=== PATIENT | male | born 1960 | race Caucasian/White ===

== ENCOUNTER → 2020-02-06 15:03 | Outpatient (BNVA) | payer OTHER, SELFPAY | PROVIDERS: PCP Internal Medicine; Visit Provider Family Medicine Adult Medicine | DX: M48.00 Spinal stenosis, site unspecified (principal); M54.16 Radiculopathy, lumbar region | CPT/HCPCS: 99212 ==

== ENCOUNTER → 2020-02-27 15:28 | Outpatient (BNVA) | payer OTHER, SELFPAY | PROVIDERS: PCP Internal Medicine; Visit Provider Family Medicine Adult Medicine | DX: M54.16 Radiculopathy, lumbar region (principal); M48.00 Spinal stenosis, site unspecified; Z79.891 Long term (current) use of opiate analgesic | CPT/HCPCS: 99212; Q3014 ==

== ENCOUNTER → 2020-03-26 15:50 | Outpatient (BNVA) | payer OTHER, SELFPAY | PROVIDERS: PCP Internal Medicine; Visit Provider Family Medicine Adult Medicine | DX: M54.16 Radiculopathy, lumbar region (principal); M48.00 Spinal stenosis, site unspecified | CPT/HCPCS: Q3014 ==

== ENCOUNTER 2020-05-06 11:55 | Emergency (ER) | payer OTHER, SELFPAY ==
[2020-05-06 13:32] VITALS: BP 120/84; PULSE 94; RESP 16; TEMP 36.6; O2SAT 99; BMI 30.1
--- NOTE | 2020-05-06 14:19 | ED_ITS ---
HPI - Back Pain/Injury General Chief Complaint: Back Pain/Injury Stated Complaint: BACK PAIN Time Seen by Provider: 05/06/20 13:50 Source: patient Mode of arrival: ambulatory Limitations: no limitations History of Present Illness HPI Narrative: 59-year-old male with a history of chronic back pain/lumbar radiculopathy who is prescribed 15 mg of oxycodone by his primary care provider presenting to the ED with complaints of worsening back pain today. Reports that he ran out of his prescription that he filled on 04/02/2020 where he was given oxycodone 15 mg tablets a quantity of 120 for 30 days. He reports he followed up with pain management on 04/08/2020 and they were supposed to give him a prescription when he followed back up this month although due to his niece having COVID he was unable to follow-up this month and he reports that they told him he cannot return for another 3 months and then they will restart his prescription. Patient requesting a short script of oxycodone. Denies any other symptoms complaints or concerns at this time. Related Data Home Medications Medication Instructions Recorded Confirmed duloxetine 60 mg capsule,delayed 60 mg PO DAILY 02/06/20 04/11/20 release topiramate 25 mg tablet 25 mg PO BID 02/06/20 04/11/20 Previous Rx's Medication Instructions Recorded aspirin 81 mg tablet,delayed 81 mg PO DAILY #30 tab 03/20/20 release gabapentin 800 mg tablet 800 mg PO TID 30 Days #90 tab 04/03/20 tizanidine 4 mg tablet 4 mg PO Q8H PRN #90 tab 04/23/20 simvastatin 40 mg tablet 40 mg PO BEDTIME #90 tab 04/24/20 albuterol sulfate 90 mcg/actuation 2 puff INHALATION Q6H PRN 30 Days 04/30/20 aerosol inhaler #8.5 g cyclobenzaprine 10 mg PO TID PRN #10 tab 05/06/20 ibuprofen 800 mg PO Q8H PRN #14 tab 05/06/20 oxycodone 5 mg PO BID PRN #10 tab 05/06/20 Allergies Allergy/AdvReac Type Severity Reaction Status Date / Time Penicillins [PENICILLINS] Allergy Unknown Foaming at Verified 04/11/20 11:58 the mouth Review of Systems Review of Systems: Constitutional : No trauma, No Weight loss, No Fever, No Chills, ENT/Mouth : No Hearing loss, No Ear Pain, No Nasal Congestion, No Sinus Pain, No Hoarseness, No sore throat, No Rhinorrhea, No Swallowing Difficulty Cardiovascular : No Chest Pain, No SOB Respiratory : No Cough, No Dyspnea Gastrointestinal : No Nausea, No Vomiting, No Diarrhea, No abdominal Pain, No Hematochezia, No Melena Genitourinary : No Dysuria, No Urinary Frequency, No Hematuria, No Urinary or Bowel Incontinence/retention Musculoskeletal : + Back pain, No neck pain, No joint stiffness, No joint swelli ng Skin : No Skin Lesions, No rash or signs of infection Neuro : No Weakness, No radiation, No Numbness, No Paresthesias, No headache, no loss of bowel or bladder incontinence, no saddle anesthesia Denies history of IV drug usage. Yes all other systems are reviewed and are negative [facility] Past Medical History Attestation statement: The following information was validated with the patient. Medical History Asthma Benign essential hypertension Hyperlipidemia Lumbar degenerative disc disease Lumbar radiculopathy Obesity (BMI 30-39.9) Pure hypercholesterolemia Smoker Spinal stenosis Vitamin D deficiency Surgical History Deficient knowledge of leg surgery History of extraction of renal calculus S/P insertion of spinal cord stimulator Family History Family History Father Skin cancer Diabetes Stroke Mother Hypertension CVD (cardiovascular disease) Pacemaker Chronic kidney failure Brother History of coronary artery stent placement Social History Social History Smoking Status: Current every day smoker Tobacco Type: Cigarette Cigarettes Per Day: 10 Advance Directives: No Advance Directives Information Provided: No Physical Exam Vital Signs: Vital Signs: Last Vital Signs Temp 98 F 05/06/20 13:32 Pulse 94 05/06/20 13:32 Resp 16 05/06/20 13:32 BP 120/84 05/06/20 13:32 Pulse Ox 99 05/06/20 13:32 Body Mass Index 30.1 vital signs have been reviewed as normal and appeared to be correct. Blood pressure normal. Heart rate normal. Respiration rate normal. Temperature normal. Oxygen saturation normal. Appearance: Alert. Oriented X3. No acute di stress. Head: Normal external exam. Normocephalic. Atraumatic. No Lema signs noted. No raccoon eyes noted Eyes: PERRLA. EOMI. Conjunctiva and sclera normal. Eyelids normal. ENT: EAC normal. TM's Normal. Pharynx normal. Uvula midline. Moist mucous membranes. No trismus noted. No drooling noted. No muffled voice noted. Neck: Normal inspection. Neck supple. FROM. No adenopathy. Thyroid Normal. No meningeal signs. No neck mass noted. CVS: Normal heart rate and rhythm. Heart sound normal. No murmurs noted. Pulses normal throughout. Respiratory: No respiratory distress. Painless inspiration. Breath sounds normal. No wheezes/rales/rhonchi noted. Chest nontender. No accessory muscle usage noted or decreased air movement noted. Abdomen: Soft and nontender. Bowel sounds normal in all 4 quadrants. No distention noted. No organomegaly noted. No visible injury noted. Back: No CVA tenderness. Full range of motion noted. No obvious deformities, or edema. Mild para-spinal muscular tenderness from lumbar region to coccyx. Full ROM in back and lower extremities. 5/5 strength hip extension/flexion, abduction, adduction. Mild Lumbar pain with hip flexion against resistance. Straight leg raise test negative on right; Straight leg raise test negative on left; Reflexes normal ankle and knee bilaterally; EHL motor strength normal bilaterally Skin: Skin warm and dry. Normal skin color. Normal skin turgor. No rashes/lesions/lacerations noted. Extremities: No lower extremity edema. Extremities exhibit normal range of motion. Extremities nontender. Neuro: Oriented X 3. No motor deficit. No sensory deficit. Reflexes normal. Course Course Course Narrative: Pt c likely muscular pain, but could be herniated disc. Neuro exam shows no deficits. Not c/w AAA/epidural abscess/dissection.No high risk Hx (Incont, fever, immunosupp, recent surgery/LP, coag, signif trauma, wt loss, puls mass, hx/o Ca, TB, or IVDU) to warrant MRI/CT today. Not c/w Pyelo/UTI/kidney stone/spinal fx. Not cauda equina syndrome. I instructed patient that I can give him a short script of 5 mg oxycodone although that he needs to go to his primary care provider today or request a sooner appointment from pain management. Patient understands agrees the plan. MDM - Back Pain/Injury Medical Records Attestation: I reviewed the patient's medical records. Discharge Plan Discharge Clinical Impression: Lumbar radiculopathy Patient Disposition: Home, Self-Care Instructions: Lumbar Radiculopathy (ED), Lower Back Exercises (ED) Prescriptions: New cyclobenzaprine 10 mg tablet 10 mg PO TID PRN (Reason: muscle spasm) Qty: 10 RF: 0 ibuprofen 800 mg tablet 800 mg PO Q8H PRN (Reason: pain) Qty: 14 RF: 0 oxycodone 5 mg tablet 5 mg PO BID PRN (Reason: pain) Qty: 10 RF: 0 No Action aspirin 81 mg tablet,delayed release (DR/EC) 81 mg PO DAILY Qty: 30 RF: 3 gabapentin 800 mg tablet 800 mg PO TID 30 Days Qty: 90 RF: 5 tizanidine 4 mg tablet 4 mg PO Q8H PRN (Reason: for muscle spasm) Qty: 90 RF: 0 simvastatin 40 mg tablet 40 mg PO BEDTIME Qty: 90 RF: 0 albuterol sulfate [ProAir HFA] 90 mcg/actuation HFA aerosol inhaler 2 puff inhalation Q6H PRN (Reason: shortness of breath or wheezing) 30 Days Qty: 8.5 RF: 3 topiramate 25 mg tablet 25 mg PO BID RF: 0 duloxetine 60 mg capsule,delayed release(DR/EC) 60 mg PO DAILY RF: 0 Referrals: Shashi Ruano MD [Primary Care Provider] - 1 day (Call your PCP today) Print Language: Telugu
== END 2020-05-06 14:35 | disposition home or self-care (01) ==
PROVIDERS: Emergency Provider Internal Medicine; PCP Internal Medicine
DX: M54.16 Radiculopathy, lumbar region (principal); F17.210 Nicotine dependence, cigarettes, uncomplicated
CPT/HCPCS: 99283

== ENCOUNTER → 2020-08-13 10:55 | Outpatient (BNVA) | payer OTHER, SELFPAY | PROVIDERS: PCP Internal Medicine; Visit Provider Family Medicine Adult Medicine | DX: M51.36 Other intervertebral disc degeneration, lumbar region (principal) | CPT/HCPCS: 99212 ==

== ENCOUNTER 2022-02-05 08:17 | Emergency (ER) | payer OTHER, SELFPAY ==
[2022-02-05 08:22] VITALS: BP 132/85; PULSE 89; RESP 16; TEMP 36; O2SAT 96; BMI 28.3
--- NOTE | 2022-02-05 08:37 | ED.BACK ---
HPI - Back Pain/Injury General Chief Complaint: Back Pain/Injury Stated Complaint: back pain Time Seen by Provider: 02/05/22 08:34 Source: patient Mode of arrival: ambulatory Limitations: no limitations History of Present Illness HPI Narrative: 61 yo male with hx of asthma, HTN, HLD, chronic lumbar back pain on oxycodone Rx presents with exacerbation of chronic back pain after lifting groceries, no blood thinners, no IVDA, no b/b incontinence or saddle anesthesia. MD elicited complaint: back pain Pertinent past history: prior back pain Onset (ago): day(s) (3) Timing: constant Severity: moderate Similar Symptoms Previously: Yes Quality: sharp Location: lumbar spine Radiation: right upper leg Exacerbating factors: movement, walking, coughing/sneezing and lifting Relieving factors: immobilization Context: while lifting (?groceries) Associated symptoms: denies other symptoms Treatments prior to arrival: cold therapy, other medications and prescription analgesics Work related injury: No Related Data Home Medications Medication Instructions Recorded Confirmed topiramate 25 mg tablet 25 mg PO BID 02/06/20 07/18/20 diclofenac sodium 1 % topical gel g topical 05/15/20 07/18/20 Previous Rx's Medication Instructions Recorded tizanidine 4 mg tablet 4 mg PO Q8H PRN for muscle spasm 04/23/20 #90 tabs albuterol sulfate 90 mcg/actuation 2 puff inhalation Q6H PRN 04/30/20 aerosol inhaler (ProAir HFA) shortness of breath or wheezing 30 days #8.5 grams cyclobenzaprine 10 mg tablet 10 mg PO TID PRN muscle spasm #10 05/06/20 tabs ibuprofen 800 mg tablet 800 mg PO Q8H PRN pain #14 tabs 05/06/20 triamcinolone acetonide 0.5 % 1 appl topical BID 10 days #15 07/18/20 topical cream grams gabapentin 800 mg tablet 800 mg PO TID 30 days #90 tabs 08/01/20 oxycodone 10 mg tablet 10 mg PO Q8H PRN pain 15 days #45 08/01/20 tabs simvastatin 40 mg tablet 40 mg PO BEDTIME #90 tabs 02/24/21 aspirin 81 mg tablet,delayed 81 mg PO DAILY #30 tabs 03/24/21 release duloxetine 60 mg capsule,delayed 60 mg PO DAILY 30 days #30 caps 03/24/21 release prednisone 20 mg tablet 40 mg PO DAILY 5 days #10 tabs 02/05/22 Allergies Allergy/AdvReac Type Severity Reaction Status Date / Time Penicillins [PENICILLINS] Allergy Unknown Foaming at Verified 08/13/20 12:03 the mouth Review of Systems Review of Systems: Constitutional : No Weight loss, No Fever, No Chills, ENT/Mouth : No Hearing loss, No Ear Pain, No Nasal Congestion, No Sinus Pain, No Hoarseness, No sore throat, No Rhinorrhea, No Swallowing Difficulty Cardiovascular : No Chest Pain, No SOB Respiratory : No Cough, No Dyspnea Gastrointestinal : No Nausea, No Vomiting, No Diarrhea, No abdominal Pain, No Hematochezia, No Melena Genitourinary : No Dysuria, No Urinary Frequency, No Hematuria, No Urinary Incontinence, Musculoskeletal : positive back pain Skin : No Skin Lesions, No rash Neuro : No Weakness, No Numbness, No Paresthesias, no loss of bowel or bladder incontinence, no saddle anesthesia PMFSH Past Medical History Attestation statement: The following information was validated with the patient. Medical History Asthma Benign essential hypertension Dermatitis Hyperlipidemia Lumbar degenerative disc disease Lumbar radiculopathy Obesity (BMI 30-39.9) Pure hypercholesterolemia Smoker Spinal stenosis Vitamin D deficiency Surgical History Deficient knowledge of leg surgery History of extraction of renal calculus S/P insertion of spinal cord stimulator Family History Family History Father Skin cancer Diabetes Stroke Mother Hypertension CVD (cardiovascular disease) Pacemaker Chronic kidney failure Brother History of coronary artery stent placement Social History Social History Alcohol intake: former Patient Tobacco Use Status: Current everyday Tobacco user Cigarettes Per Day: 10 Advance Directives: No Physical Exam Vital Signs: Vital Signs: Last Vital Signs Temp 96.8 F 02/05/22 08:22 Pulse 89 02/05/22 08:22 Resp 16 02/05/22 08:22 BP 132/85 02/05/22 08:22 Pulse Ox 96 02/05/22 08:22 O2 Del Method 02/05/22 08:22 BMI result Body Mass Index 28.3 Appearance: Alert. Oriented X3. No acute distress. Eyes: Pupils equal, round and reactive to light. ENT: Pharynx normal. Neck: Normal inspection. Neck supple. CVS: Normal heart rate and rhythm. Pulses normal. Respiratory: No respiratory distress. Breath sounds normal. Abdomen: Soft and nontender. Back: ttp along R lower paraspinal area Skin: Skin warm and dry. Normal skin color. Normal skin turgor. Extremities: No lower extremity edema. No calf ttp Neuro: Oriented X 3. No motor deficit. No sensory deficit. uses cane distal pulses intact, 2+ DTR in patella area MDM - Back Pain/Injury MDM Narrative Medical decision making narrative: 61 yo male with hx of asthma, HTN, HLD, chronic lumbar back pain on oxycodone Rx here with back pain no CE symptoms, no red flags, no falls - here requesting prednisone - has responded to this in past. Told not to take his NSAIDs with it. Refer to PCP. Discharge Plan Discharge Clinical Impression: Lumbar radiculopathy Patient Disposition: Home, Self-Care Instructions: Acute Low Back Pain (ED), Lumbar Radiculopathy (ED) Additional Instructions: return to ED for any worsening symptoms or concerns do not mix meloxicam or NSAIDs with prednisone at this time Prescriptions: New prednisone 20 mg tablet 40 mg PO DAILY 5 Days Qty: 10 0RF No Action tizanidine 4 mg tablet 4 mg PO Q8H PRN (Reason: for muscle spasm) Qty: 90 0RF albuterol sulfate [ProAir HFA] 90 mcg/actuation HFA aerosol inhaler 2 puff inhalation Q6H PRN (Reason: shortness of breath or wheezing) 30 Days Qty: 8.5 3RF oxycodone 10 mg tablet 10 mg PO Q8H PRN (Reason: pain) 15 Days Qty: 45 0RF Rx Instructions: partial fill upon request - will continue ONLY UNTIL he is able to start back up with Dr. Gopi Roberts for pain management (has appt. on 08/13/2020) gabapentin 800 mg tablet 800 mg PO TID 30 Days Qty: 90 5RF simvastatin 40 mg tablet 40 mg PO BEDTIME Qty: 90 0RF aspirin 81 mg tablet,delayed release (DR/EC) 81 mg PO DAILY Qty: 30 2RF duloxetine 60 mg capsule,delayed release(DR/EC) 60 mg PO DAILY 30 Days Qty: 30 3RF cyclobenzaprine 10 mg tablet 10 mg PO TID PRN (Reason: muscle spasm) Qty: 10 0RF ibuprofen 800 mg tablet 800 mg PO Q8H PRN (Reason: pain) Qty: 14 0RF diclofenac sodium 1 % gel topical triamcinolone acetonide 0.5 % cream 1 appl topical BID 10 Days Qty: 15 2RF topiramate 25 mg tablet 25 mg PO BID Referrals: Charis Matos MD [Primary Care Provider] - 3 days (if not better)
== END 2022-02-05 09:13 | disposition home or self-care (01) ==
PROVIDERS: Emergency Provider Emergency Medicine; PCP Family Medicine
DX: M54.50 Low back pain, unspecified (principal); Z79.899 Other long term (current) drug therapy; F17.210 Nicotine dependence, cigarettes, uncomplicated; Z71.6 Tobacco abuse counseling
CPT/HCPCS: 99283

== ENCOUNTER 2022-06-30 09:45 | Emergency (ER) | payer OTHER, SELFPAY ==
--- NOTE | ~2022-06-30 | XR_ITS ---
Examination: Left elbow and left shoulder. CLINICAL INDICATION: Left shoulder and elbow pain. COMPARISON: None. TECHNIQUE: 3 views left elbow and 3 views left shoulder. FINDINGS: LEFT ELBOW: The elbow joint space is maintained normal. No fracture, dislocation or loose body seen. No abnormal joint effusion. LEFT SHOULDER: There is no visible acute fracture, dislocation or subluxation seen. No bony erosive changes. The soft tissues are normal. XR/XR shoulder LT min 2V IMPRESSION: Unremarkable left elbow and left shoulder exam.
--- NOTE | ~2022-06-30 | XR_ITS ---
Examination: Left elbow and left shoulder. CLINICAL INDICATION: Left shoulder and elbow pain. COMPARISON: None. TECHNIQUE: 3 views left elbow and 3 views left shoulder. FINDINGS: LEFT ELBOW: The elbow joint space is maintained normal. No fracture, dislocation or loose body seen. No abnormal joint effusion. LEFT SHOULDER: There is no visible acute fracture, dislocation or subluxation seen. No bony erosive changes. The soft tissues are normal. XR/XR elbow LT min 3V IMPRESSION: Unremarkable left elbow and left shoulder exam.
[2022-06-30 09:58] VITALS: BP 133/86; PULSE 91; RESP 18; TEMP 36.6; O2SAT 98; BMI 28.3
[2022-06-30 12:33] VITALS: BP 142/89; PULSE 71; RESP 16; O2SAT 98
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
== END 2022-06-30 14:35 | disposition home or self-care (01) ==
PROVIDERS: Emergency Provider Emergency Medicine; PCP Family Medicine
DX: S43.402A Unspecified sprain of left shoulder joint, initial encounter (principal); S53.402A Unspecified sprain of left elbow, initial encounter; V43.52XA Car driver injured in collision with other type car in traffic accident, initial encounter; Y93.9 Activity, unspecified; Y92.410 Unspecified street and highway as the place of occurrence of the external cause; Y99.9 Unspecified external cause status
CPT/HCPCS: 73030; 73080; 99283

== ENCOUNTER 2024-07-15 11:39 | Emergency (ER) | payer OTHER, SELFPAY ==
[2024-07-15 12:09] VITALS: BP 133/91; PULSE 76; RESP 18; TEMP 36.3; O2SAT 98; BMI 31.0
--- NOTE | 2024-07-15 12:09 | ED.GENADULT ---
HPI - General Adult General Chief complaint: Upper Respiratory Symptoms Stated complaint: sinus congestion Time Seen by Provider: 07/15/24 12:13 Source: patient, RN notes reviewed and old records reviewed Mode of arrival: ambulatory History of Present Illness ED Provider: Isabella Zhou PA-C HPI narrative: 64 year old male with PMHx asthma, HTN, HLD, smoking presenting to the ED c/o sinus congestion x couple weeks. Reports mucus throughout day and dry membranes at night. Denies fever, ear/throat pain, cough. Reports has been around daughter who has been sick. Related Data Home Medications ?Medication ?Instructions ?Recorded ?Confirmed topiramate 25 mg tablet 25 mg PO BID 02/06/20 07/18/20 diclofenac sodium 1 % topical gel g topical 05/15/20 07/18/20 Previous Rx's ?Medication ?Instructions ?Recorded tizanidine 4 mg tablet 4 mg PO Q8H PRN for muscle spasm 04/23/20 #90 tabs albuterol sulfate 90 mcg/actuation 2 puff inhalation Q6H PRN 04/30/20 aerosol inhaler (ProAir HFA) shortness of breath or wheezing 30 days #8.5 grams cyclobenzaprine 10 mg tablet 10 mg PO TID PRN muscle spasm #10 05/06/20 tabs ibuprofen 800 mg tablet 800 mg PO Q8H PRN pain #14 tabs 05/06/20 triamcinolone acetonide 0.5 % 1 appl topical BID 10 days #15 07/18/20 topical cream grams gabapentin 800 mg tablet 800 mg PO TID 30 days #90 tabs 08/01/20 oxycodone 10 mg tablet 10 mg PO Q8H PRN pain 15 days #45 08/01/20 tabs simvastatin 40 mg tablet 40 mg PO BEDTIME #90 tabs 02/24/21 aspirin 81 mg tablet,delayed 81 mg PO DAILY #30 tabs 03/24/21 release duloxetine 60 mg capsule,delayed 60 mg PO DAILY 30 days #30 caps 03/24/21 release prednisone 20 mg tablet 40 mg (2 x 20 mg) PO DAILY 5 days 02/05/22 #10 tabs cyclobenzaprine 10 mg tablet 10 mg PO Q8H #14 tabs 06/30/22 naproxen 500 mg tablet 500 mg PO BID PRN pain #14 tabs 06/30/22 cefdinir 300 mg capsule 300 mg PO BID 7 days #14 caps 07/15/24 fluticasone propionate 50 2 spray intranasal DAILY #16 grams 07/15/24 mcg/actuation nasal spray,suspension (Flonase Allergy Relief) Allergies Allergy/AdvReac Type Severity Reaction Status Date / Time Penicillins [PENICILLINS] Allergy Unknown Foaming at Verified 07/15/24 12:11 the mouth Review of Systems Review of Systems: Yes all other systems are reviewed and are negative Constitutional: Constitutional: Reports as per [facility] Past Medical History Attestation statement: The following information was validated with the patient. Source: old records reviewed Medical History Dermatitis Obesity (BMI 30-39.9) Smoker Vitamin D deficiency Asthma Benign essential hypertension Pure hypercholesterolemia Lumbar radiculopathy Spinal stenosis Lumbar degenerative disc disease Hyperlipidemia Surgical History History of extraction of renal calculus Deficient knowledge of leg surgery S/P insertion of spinal cord stimulator Family History Family History Father Skin cancer Diabetes Stroke Mother Hypertension CVD (cardiovascular disease) Pacemaker Chronic kidney failure Brother History of coronary artery stent placement Social History Social History Alcohol intake: former Patient Tobacco Use Status: Current everyday Tobacco user Cigarettes Per Day: 10 Advance Directives: No Advance Directives Information Provided: No Do you have a plan to hurt others: No Plan Physical Exam ED Vital Signs: Vital Signs - 24 hr 07/15/24 12:09 07/15/24 14:00 Temperature 97.4 F 97.2 F Pulse Rate 76 77 Respiratory Rate 18 18 Blood Pressure 133/91 H 135/88 Pulse Oximetry 98 97 Oxygen Delivery Method Room Air Room Air BMI result Body Mass Index 31.0 Const General: cooperative, healthy appearing and no acute distress Orientation/consciousness: patient oriented x3 Limitations: no limitations HENMT Other: +congested Head: Yes normal to inspection and Yes atraumatic Ears: hearing grossly normal bilaterally, external ears normal, TM's normal bilaterally and mastoids normal General nose exam: Normal external nose present Face and sinus: Yes normal facial exam, Yes sinuses nontender and Yes face symmetric Mouth: Normal oral and palatal mucosa present and no drooling Throat: Yes posterior oropharynx normal, Yes tonsils normal, Yes uvula midline, No peritonsillar mass, No uvula laterally displaced and No uvular edema Eyes General: appearance normal, both eyes and all related structures EOM: EOMs intact bilaterally Neck Neck: Yes normal visual inspection and Yes no meningeal signs Resp Effort & Inspection: normal respiratory effort and no respiratory distress Cardio Rate: regular rate Skin Rashes: no rashes Wounds: no wounds Neuro General: patient oriented x3, tone normal and no meningeal signs Cranial nerves: Yes CN's II-XII intact bilaterally Gait exam (Neuro): Normal gait present Extrem General: Yes normal to inspection Medical Decision Making Medical Decision Making MDM Narrative: 64 year old male with PMHx asthma, HTN, HLD, smoking presenting to the ED c/o sinus congestion x couple weeks. on exam vital signs stable, NAD, nontoxic appearing, physical exam as noted above. Concern for sinusitis. No evidence of acute otitis media/ externa, mastoiditis, [employer] / retropharyngeal abscess plan: Viral testing Please refer to course for remaining clinical decision making, interpretation of labs/imaging results, and discussions with consultants and/or family members. Differential Diagnosis Differential Diagnoses: The differential diagnosis associated with the presentation includes As above Lab Data [facility] Lab Attestation statement: I reviewed the patient's lab results. Labs: Lab Results 07/15/24 Range/Units 12:16 Influenza Type A (PCR) NEGATIVE (Negative) Influenza Type B (PCR) NEGATIVE (Negative) RSV RNA Qual (PCR) NEGATIVE (Negative) SARS-CoV-2 RNA (RT-PCR) NEGATIVE (Negative) External Record Review External record reviewed: Inpatient record, Office record, Outpatient record, Prior outpatient labs, Prior outpatient radiology, Primary care record and Outside ED record Tests considered The following testing was considered but not selected: As above Prescription Management I considered prescription management with: Pain Medication and Antibiotic Chronic Conditions Patient?s care impacted by: Other Social Determinants Patient?s care significantly limited by Social Determinants of Health including: Other Social Determinant of Health Discharge Plan Discharge Clinical Impression: Sinusitis Patient Disposition: Home, Self-Care Instructions: Sinusitis (ED) Additional Instructions: You likely have sinusitis. Cefdinir as an antibiotic please take as prescribed Flonase as a nasal decongestant, take as needed Follow up with your primary care doctor If her symptoms persist or worsen return to the emergency department Prescriptions: New cefdinir 300 mg capsule 300 mg PO BID 7 Days Qty: 14 0RF fluticasone propionate [Flonase Allergy Relief] 50 mcg/actuation spray,suspension 2 spray intranasal DAILY Qty: 16 0RF Rx Instructions: administer into each nostril No Action tizanidine 4 mg tablet 4 mg PO Q8H PRN (Reason: for muscle spasm) Qty: 90 0RF albuterol sulfate [ProAir HFA] 90 mcg/actuation HFA aerosol inhaler 2 puff inhalation Q6H PRN (Reason: shortness of breath or wheezing) 30 Days Qty: 8.5 3RF oxycodone 10 mg tablet 10 mg PO Q8H PRN (Reason: pain) 15 Days Qty: 45 0RF Rx Instructions: partial fill upon request - will continue ONLY UNTIL he is able to start back up with Dr. Gopi Roberts for pain management (has appt. on 08/13/2020) gabapentin 800 mg tablet 800 mg PO TID 30 Days Qty: 90 5RF simvastatin 40 mg tablet 40 mg PO BEDTIME Qty: 90 0RF aspirin 81 mg tablet,delayed release (DR/EC) 81 mg PO DAILY Qty: 30 2RF duloxetine 60 mg capsule,delayed release(DR/EC) 60 mg PO DAILY 30 Days Qty: 30 3RF cyclobenzaprine 10 mg tablet 10 mg PO TID PRN (Reason: muscle spasm) Qty: 10 0RF ibuprofen 800 mg tablet 800 mg PO Q8H PRN (Reason: pain) Qty: 14 0RF prednisone 20 mg tablet 40 mg PO DAILY 5 Days Qty: 10 0RF naproxen 500 mg tablet 500 mg PO BID PRN (Reason: pain) Qty: 14 0RF cyclobenzaprine 10 mg tablet 10 mg PO Q8H Qty: 14 0RF diclofenac sodium 1 % gel topical triamcinolone acetonide 0.5 % cream 1 appl topical BID 10 Days Qty: 15 2RF topiramate 25 mg tablet 25 mg PO BID Referrals: Physician,Unknown J [Physician] - 1 week Interventions: ED Discharge Assessment Last Done: 07/15/24 14:00 Discharge Date/Time: 07/15/24 14:01 Print Language: Stateless
[2024-07-15 13:20] LABS: Influenza A PCR NEGATIVE (Negative); Influenza B PCR NEGATIVE (Negative); Resp Syncy Virus RNA Qual PCR NEGATIVE (Negative); SARS COV2 PCR INHOUSE NEGATIVE (Negative)
[2024-07-15 14:00] VITALS: BP 135/88; PULSE 77; RESP 18; TEMP 36.2; O2SAT 97
== END 2024-07-15 14:01 | disposition home or self-care (01) ==
LOC: HO.ED 13:59
PROVIDERS: Physician Assistant; Emergency Provider Emergency Medicine Emergency Medical Services
DX: J32.9 Chronic sinusitis, unspecified (principal); R09.81 Nasal congestion; I10 Essential (primary) hypertension; E78.5 Hyperlipidemia, unspecified; J45.909 Unspecified asthma, uncomplicated; Z03.818 Encounter for observation for suspected exposure to other biological agents ruled out
CPT/HCPCS: 0241U; 99282; 99283

== ENCOUNTER 2025-03-05 10:38 | Emergency (ER) | payer OTHER, SELFPAY ==
--- NOTE | ~2025-03-05 | XR_ITS ---
EXAMINATION: XR SACROILIAC JOINTS CLINICAL INFORMATION: pain COMPARISON: None available. TECHNIQUE: 3 views of the sacroiliac joints FINDINGS: SI joints are symmetrical without sclerosis, effusion, or erosions. No fracture, deformity, or irregularity is identified. XR/XR sacroiliac joint min 3V IMPRESSION: Unremarkable sacroiliac joints. Electronically signed by: Ziggy Allen MD 03/05/2025 11:22 AM [facility]
--- NOTE | ~2025-03-05 | XR_ITS ---
EXAMINATION: XR LUMBOSACRAL SPINE CLINICAL INFORMATION: back pain COMPARISON: July 22, 2013 TECHNIQUE: Three views of the lumbosacral spine. FINDINGS: There are 5 nonrib-bearing lumbar segments. No fracture is demonstrated. There has been interval increase in degenerative changes with progression of disc space narrowing, endplate sclerosis, and increasing osteophyte size. Degenerative changes most pronounced at L3-4 where there is moderate loss of disc height, osteophytes, and endplate sclerosis. There is mild facet arthropathy as well with osteophytes. L4-5 demonstrates stable subtle retrolisthesis with mild disc space narrowing but increasing endplate sclerosis and osteophytes.. XR/XR lumbar spine 2-3V IMPRESSION: No acute bony abnormality. Increasing mild to moderate degenerative disc disease and facet arthropathy, most pronounced at L3-4. Electronically signed by: Ziggy Allen MD 03/05/2025 11:21 AM [facility]
[2025-03-05 10:44] VITALS: BP 131/87; PULSE 83; RESP 16; TEMP 35.9; O2SAT 98; BMI 29.3
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
[2025-03-05 11:56] VITALS: BP 131/87; PULSE 83; RESP 16; TEMP 35.9; O2SAT 98
== END 2025-03-05 11:57 | disposition home or self-care (01) ==
PROVIDERS: Emergency Provider Emergency Medicine
DX: M54.50 Low back pain, unspecified (principal); V49.9XXA Car occupant (driver) (passenger) injured in unspecified traffic accident, initial encounter; Y93.9 Activity, unspecified; Y92.9 Unspecified place or not applicable
CPT/HCPCS: 72100; 72202; 99282; 99283

== ENCOUNTER → 2025-03-05 10:49 | Outpatient (BNV) | payer OTHER, SELFPAY | PROVIDERS: Emergency Provider Emergency Medicine; Visit Provider Radiology Diagnostic Radiology | DX: M51.360 Other intervertebral disc degeneration, lumbar region with discogenic back pain only (principal); M53.3 Sacrococcygeal disorders, not elsewhere classified | CPT/HCPCS: 72100; 72202 ==